=== PATIENT | male | born 1965 | race Two or more races ===

== ENCOUNTER 2017-04-29 03:14 | Inpatient (IN) | payer MEDICAID ==
[~2017-04-29] VITALS: Ht 185.4 cm; Wt 113.5 kg
[2017-04-29 04:22] LABS: Basophils # (auto) 0 uL; Basophils % (auto) 0.5 % (0.0-2.0); Eosinophils # (auto) 0.2 uL; Eosinophils % (auto) 3.7 % (0.0-7.0); Hematocrit 42.1 % (41.0-53.0); Hemoglobin 14.2 g/dL (13.5-17.5); Lymphocytes # (auto) 1.8 uL; Lymphocytes % (auto) 31.3 % (10.0-50.0); Mean Corpuscular Hemoglobin 29.8 pg (28.0-32.0); Mean Corpuscular Hgb Conc. 33.8 g/dL (32.0-36.0); Mean Corpuscular Volume 88.2 fL (80.0-100.0); Mean Platelet Volume 9.7 fL (7.4-10.4); Monocytes # (auto) 0.4 uL; Monocytes % (auto) 6.9 % (0.0-12.0); Neutrophils # (auto) 3.4 uL; Neutrophils % (auto) 57.6 % (37.0-80.0); Platelet Count (auto) 175 10^3/uL (140-450); Red Cell Distribution Width 13.4 % (11.6-16.0); White Blood Cell 5.8 10^3/uL (4.4-10.8)
[2017-04-29 04:31] LABS: INR 0.99 (0.9-1.15); Partial Thromboplastin Time 28.6 sec (22.64-33.71); Prothrombin Time 10.8 sec (9.37-12.3)
[2017-04-29 04:37] LABS: Albumin 3.8 g/dL (3.4-5.0); Blood Urea Nitrogen 15 mg/dL (7-18); Calcium 8.1 mg/dL (8.5-10.1); Chloride 107 mmol/L (98-107); Glucose 166 mg/dL (74-106); Magnesium 1.8 mg/dL (1.6-2.6); Sodium 141 mmol/L (136-145)
[2017-04-29 04:41] LABS: Anion Gap 11 (5-15); Aspartate Aminotransferase 89 U/L (15-37); BUN/Creatinine Ratio 17.4; Bilirubin, Total 0.7 mg/dL (0.2-1.0); Carbon Dioxide 23 mmol/L (21-32); GFR African American 120 mL/min; GFR Non-African American 99 mL/min; Total Protein 6.9 g/dL (6.4-8.2)
[2017-04-29 04:45] LABS: Alkaline Phosphatase 106 U/L (45-117)
[2017-04-29 04:46] LABS: B-Type Natriuretic Peptide 21.94 pg/mL (0-100)
[2017-04-29 04:47] LABS: Temperature: 22.3 C (20.0-25.0)
[2017-04-29] MEDS ORDERED: ONDANSETRON HCL 4 MG/2 ML VIAL IV ONE (06:00)
[2017-04-29] MEDS ORDERED: MORPHINE SULF INJ 2 MG/ML SYRINGE 1ML IV ONE (06:45)
[2017-04-29] MEDS ORDERED: SODIUM CHLORIDE 0.9% 1,000 ML IV ONE (07:00)
[2017-04-29] MEDS ORDERED: METF-370 PO (07:30)
[2017-04-29 08:00] LABS: Amylase 42 U/L (25-115)
[2017-04-29 08:10] LABS: Urine Bilirubin Negative (Negative); Urine Blood Negative /uL (Negative); Urine Ca Oxalate Crystal FEW (None Seen); Urine Color Yellow (Yellow); Urine Ketone Negative (Negative); Urine Mucus FEW (None Seen); Urine Nitrite Negative (Negative); Urine RBC 1 /hpf (0 - 3)
[2017-04-29 08:12] LABS: Urine Glucose 1+ mg/dL (Normal)
[2017-04-29] MEDS ORDERED: HYDROmorphone HCL 2 MG/ML VL IV ONE (09:00)
[2017-04-29] MEDS ORDERED: DEXTROSE (50%) 50ML SYRG IV PRN (11:15)
[2017-04-29] MEDS ORDERED: NITROGLYCERIN 0.4 MG SL TAB SL PRN ×2 (11:15)
[2017-04-29] MEDS ORDERED: ZOLPIDEM TARTRATE 5 MG TAB PO PRN (11:15)
[2017-04-29] MEDS ORDERED: MORPHINE SULF INJ 2 MG/ML SYRINGE 1ML IV PRN (11:15)
[2017-04-29] MEDS ORDERED: LORazepam 0.5 MG TAB PO PRN (11:15)
[2017-04-29] MEDS ORDERED: ALUM & MAG HYDROX-SIMETH LIQ(MAALOX) 30 ML PO PRN (11:15)
[2017-04-29] MEDS ORDERED: DOCUSATE SOD 100 MG CAP PO ONE (11:30)
[2017-04-29] MEDS ORDERED: ENALAPRIL MALEATE 2.5 MG TAB PO ONE (11:30)
[2017-04-29] MEDS ORDERED: CARVEDILOL 3.125 MG TAB PO ONE (11:30)
[2017-04-29] MEDS ORDERED: ASPirin 81 mg TAB PO ONE (11:30)
[2017-04-29] MEDS ORDERED: CLOPIDOGREL BISULFATE 75 MG TAB PO ONE (11:30)
[2017-04-29] MEDS: ACCU-CHEK COMFORT CURVE STRIP VI SCH ×3 (12:14→22:13)
[2017-04-29] MEDS: InsuLIN REG 1unit/0.01ml Soln (100units/ml) SC SCH ×3 (12:14→22:00)
[2017-04-29] MEDS ORDERED: PREG75CA PO (12:52)
[2017-04-29] MEDS ORDERED: IBUP800T24 PO (12:52)
[2017-04-29] MEDS ORDERED: FENO160T8 PO (12:52)
[2017-04-29] MEDS: SODIUM CHLOR 0.9% PF (SALINE LOCK) 10ML VIAL IV SCH ×2 (14:00→22:11)
[2017-04-29] MEDS: MORPHINE SULF INJ 2 MG/ML SYRINGE 1ML IV PRN (16:45)
[2017-04-29] MEDS: ONDANSETRON HCL 4 MG/2 ML VIAL IV PRN (16:47)
[2017-04-29 17:00] VITALS: BP 107/60
[2017-04-29] MEDS ORDERED: POTASSIUM CHL 10% (20 MEQ/15ML) ORAL SOLN PO ONE (19:00)
[2017-04-29] MEDS ORDERED: FUROSEMIDE 20 MG/2 ML VIAL IV ONE (19:00)
[2017-04-29 20:00] VITALS: BP 120/75
[2017-04-29] MEDS: MAGNESIUM SULFATE 1GM/100ML 100 ML IV SCH ×2 (20:50→22:10)
[2017-04-29] MEDS ORDERED: ATORVASTATIN 20 MG TAB PO SCH (22:00)
[2017-04-29] MEDS: FENOFIBRATE 48MG PO SCH (22:00)
[2017-04-29 22:08] VITALS: BP 120/75
[2017-04-29] MEDS: ENALAPRIL MALEATE 2.5 MG TAB PO SCH (22:12)
[2017-04-29] MEDS: PREGABALIN CAPSULE 75 MG CAP PO SCH (22:13)
[2017-04-29] MEDS: CARVEDILOL 3.125 MG TAB PO SCH (22:13)
[2017-04-30] VITALS (7 sets, daily range): BP systolic 104–119; BP diastolic 56–75
[2017-04-30 05:46] LABS: Basophils # (auto) 0 uL; Basophils % (auto) 0.2 % (0.0-2.0); Eosinophils # (auto) 0 uL; Eosinophils % (auto) 0.1 % (0.0-7.0); Hemoglobin 14.2 g/dL (13.5-17.5); Lymphocytes # (auto) 0.3 uL; Lymphocytes % (auto) 4.1 % (10.0-50.0); Mean Corpuscular Hgb Conc. 33.9 g/dL (32.0-36.0); Mean Corpuscular Volume 88.6 fL (80.0-100.0); Mean Platelet Volume 10.3 fL (7.4-10.4); Monocytes # (auto) 0.5 uL; Monocytes % (auto) 5.7 % (0.0-12.0); Neutrophils # (auto) 7.7 uL; Neutrophils % (auto) 89.9 % (37.0-80.0); Platelet Count (auto) 167 10^3/uL (140-450); Red Cell Distribution Width 14.1 % (11.6-16.0); White Blood Cell 8.5 10^3/uL (4.4-10.8)
[2017-04-30] MEDS: SODIUM CHLOR 0.9% PF (SALINE LOCK) 10ML VIAL IV SCH ×3 (06:16→21:52)
[2017-04-30 06:18] LABS: Albumin 3.5 g/dL (3.4-5.0); BUN/Creatinine Ratio 14.3; Bilirubin, Total 8.1 mg/dL (0.2-1.0); Calcium 8.3 mg/dL (8.5-10.1); Magnesium 2.2 mg/dL (1.6-2.6); Potassium 3.7 mmol/L (3.5-5.1); Total Protein 6.6 g/dL (6.4-8.2)
[2017-04-30] MEDS: InsuLIN REG 1unit/0.01ml Soln (100units/ml) SC SCH ×4 (06:38→21:51)
[2017-04-30] MEDS: ACCU-CHEK COMFORT CURVE STRIP VI SCH ×4 (06:38→21:51)
[2017-04-30] MEDS: ASPirin 81 mg TAB PO SCH (09:37)
[2017-04-30] MEDS: DOCUSATE SOD 100 MG CAP PO SCH (09:37)
[2017-04-30] MEDS: CARVEDILOL 3.125 MG TAB PO SCH ×2 (09:38→21:43)
[2017-04-30] MEDS: ENALAPRIL MALEATE 2.5 MG TAB PO SCH ×2 (09:38→21:44)
[2017-04-30] MEDS: MORPHINE SULF INJ 2 MG/ML SYRINGE 1ML IV PRN (09:41)
[2017-04-30] MEDS ORDERED: METOPROLOL TARTRATE 50 MG TAB PO ONE (10:00)
[2017-04-30] MEDS ORDERED: CLOPIDOGREL BISULFATE 75 MG TAB PO SCH (10:00)
[2017-04-30] MEDS ORDERED: IOHEXOL 350 MG/ML 100ML IJ ONE (10:43)
[2017-04-30] MEDS ORDERED: METOPROLOL TARTRATE 1MG/1ML-5ML VIAL IV ONE (11:32)
[2017-04-30] MEDS: ACETAMINOPHEN 325 MG TAB PO PRN (17:20)
[2017-04-30] MEDS: ONDANSETRON HCL 4 MG/2 ML VIAL IV PRN (17:20)
[2017-04-30] MEDS: PREGABALIN CAPSULE 75 MG CAP PO SCH (21:43)
[2017-04-30] MEDS: FENOFIBRATE 48MG PO SCH (21:53)
[2017-05-01] MEDS: IBUPROFEN 800 MG TAB PO PRN ×2 (01:49→19:45)
[2017-05-01 04:50] VITALS: BP 115/63
[2017-05-01 05:58] LABS: Basophils # (auto) 0 uL; Basophils % (auto) 0.6 % (0.0-2.0); Eosinophils # (auto) 0.1 uL; Eosinophils % (auto) 1.5 % (0.0-7.0); Lymphocytes # (auto) 0.5 uL; Lymphocytes % (auto) 8.8 % (10.0-50.0); Mean Corpuscular Hgb Conc. 34.2 g/dL (32.0-36.0); Mean Corpuscular Volume 87.6 fL (80.0-100.0); Mean Platelet Volume 9.7 fL (7.4-10.4); Monocytes # (auto) 0.5 uL; Monocytes % (auto) 10.6 % (0.0-12.0); Neutrophils # (auto) 4.1 uL; Neutrophils % (auto) 78.5 % (37.0-80.0); Platelet Count (auto) 161 10^3/uL (140-450); Red Cell Distribution Width 13.7 % (11.6-16.0); White Blood Cell 5.2 10^3/uL (4.4-10.8)
[2017-05-01] MEDS: SODIUM CHLOR 0.9% PF (SALINE LOCK) 10ML VIAL IV SCH ×3 (06:04→21:39)
[2017-05-01 06:10] LABS: BUN/Creatinine Ratio 13.7; Calcium 8.5 mg/dL (8.5-10.1); Potassium 4.3 mmol/L (3.5-5.1)
[2017-05-01 06:12] LABS: Albumin 3.6 g/dL (3.4-5.0); Bilirubin, Total 4.7 mg/dL (0.2-1.0); Total Protein 6.8 g/dL (6.4-8.2)
[2017-05-01 06:16] LABS: Bilirubin, Direct 3.3 mg/dL (0-0.2)
[2017-05-01 06:27] LABS: Hepatitis B Surface Antibody Negative
[2017-05-01] MEDS: InsuLIN REG 1unit/0.01ml Soln (100units/ml) SC SCH ×4 (06:53→21:41)
[2017-05-01] MEDS: ACCU-CHEK COMFORT CURVE STRIP VI SCH ×4 (06:53→21:42)
[2017-05-01 09:00] VITALS: BP 113/67
[2017-05-01] MEDS: ENALAPRIL MALEATE 2.5 MG TAB PO SCH ×2 (10:06→21:40)
[2017-05-01] MEDS: DOCUSATE SOD 100 MG CAP PO SCH (10:16)
[2017-05-01] MEDS: CARVEDILOL 3.125 MG TAB PO SCH ×2 (10:17→21:39)
[2017-05-01] MEDS: ASPirin 81 mg TAB PO SCH (10:17)
[2017-05-01 12:36] VITALS: BP 111/74
[2017-05-01] MEDS: PREGABALIN CAPSULE 75 MG CAP PO SCH (21:40)
[2017-05-01] MEDS: FENOFIBRATE 48MG PO SCH (21:40)
[2017-05-01 21:50] VITALS: BP 102/59
[2017-05-02 05:06] VITALS: BP 104/68
[2017-05-02 05:57] LABS: Basophils # (auto) 0 uL; Basophils % (auto) 0.5 % (0.0-2.0); Eosinophils # (auto) 0.2 uL; Eosinophils % (auto) 3.9 % (0.0-7.0); Hemoglobin 14.9 g/dL (13.5-17.5); Lymphocytes # (auto) 0.7 uL; Lymphocytes % (auto) 16.2 % (10.0-50.0); Mean Corpuscular Hgb Conc. 33.9 g/dL (32.0-36.0); Mean Corpuscular Volume 88.5 fL (80.0-100.0); Mean Platelet Volume 9.4 fL (7.4-10.4); Monocytes # (auto) 0.7 uL; Monocytes % (auto) 15.2 % (0.0-12.0); Neutrophils % (auto) 64.2 % (37.0-80.0); Platelet Count (auto) 157 10^3/uL (140-450); Red Cell Distribution Width 13.8 % (11.6-16.0); White Blood Cell 4.6 10^3/uL (4.4-10.8)
[2017-05-02] MEDS: SODIUM CHLOR 0.9% PF (SALINE LOCK) 10ML VIAL IV SCH ×3 (06:18→22:27)
[2017-05-02] MEDS: InsuLIN REG 1unit/0.01ml Soln (100units/ml) SC SCH ×4 (06:18→22:00)
[2017-05-02] MEDS: ACCU-CHEK COMFORT CURVE STRIP VI SCH ×4 (06:18→22:27)
[2017-05-02 06:20] LABS: Albumin 3.5 g/dL (3.4-5.0); BUN/Creatinine Ratio 14.6; Bilirubin, Total 2.7 mg/dL (0.2-1.0); Calcium 8.6 mg/dL (8.5-10.1); Potassium 4.4 mmol/L (3.5-5.1)
[2017-05-02 06:21] LABS: Bilirubin, Direct 1.6 mg/dL (0-0.2)
[2017-05-02 08:00] VITALS: BP 128/78
[2017-05-02 09:00] VITALS: BP 128/78
[2017-05-02] MEDS ORDERED: GASTROGRAFIN 30 ML SOL ONE (09:37)
[2017-05-02] MEDS: ASPirin 81 mg TAB PO SCH (09:57)
[2017-05-02] MEDS: DOCUSATE SOD 100 MG CAP PO SCH (09:57)
[2017-05-02] MEDS: CARVEDILOL 3.125 MG TAB PO SCH ×2 (09:58→22:27)
[2017-05-02] MEDS: ENALAPRIL MALEATE 2.5 MG TAB PO SCH ×2 (09:58→22:00)
[2017-05-02] MEDS ORDERED: IOHEXOL 300 MG/ML 100ML BOTTLE IJ ONE (11:18)
[2017-05-02] MEDS ORDERED: diphenhdrAMINE HCL 50 MG/1 ML VL IV ONE (12:30)
[2017-05-02 17:00] VITALS: BP 123/67
[2017-05-02] MEDS: IBUPROFEN 800 MG TAB PO PRN (17:29)
[2017-05-02] MEDS: FENOFIBRATE 48MG PO SCH (22:00)
[2017-05-02 22:27] VITALS: BP 108/69
[2017-05-02] MEDS: PREGABALIN CAPSULE 75 MG CAP PO SCH (22:58)
[2017-05-03] VITALS (7 sets, daily range): BP systolic 93–128; BP diastolic 58–79
[2017-05-03 05:43] LABS: Basophils # (auto) 0 uL; Basophils % (auto) 0.6 % (0.0-2.0); Eosinophils # (auto) 0.3 uL; Eosinophils % (auto) 5.6 % (0.0-7.0); Hemoglobin 14.7 g/dL (13.5-17.5); Lymphocytes # (auto) 1.6 uL; Mean Corpuscular Hemoglobin 29.9 pg (28.0-32.0); Mean Corpuscular Hgb Conc. 34.3 g/dL (32.0-36.0); Mean Corpuscular Volume 87.1 fL (80.0-100.0); Mean Platelet Volume 9.5 fL (7.4-10.4); Monocytes # (auto) 0.8 uL; Monocytes % (auto) 15.2 % (0.0-12.0); Neutrophils # (auto) 2.8 uL; Neutrophils % (auto) 50.6 % (37.0-80.0); Platelet Count (auto) 174 10^3/uL (140-450); Red Cell Distribution Width 13.6 % (11.6-16.0); White Blood Cell 5.6 10^3/uL (4.4-10.8)
[2017-05-03] MEDS: SODIUM CHLOR 0.9% PF (SALINE LOCK) 10ML VIAL IV SCH ×3 (06:09→22:08)
[2017-05-03 06:32] LABS: Albumin 3.4 g/dL (3.4-5.0); BUN/Creatinine Ratio 15.9; Bilirubin, Total 1.9 mg/dL (0.2-1.0); Calcium 8.3 mg/dL (8.5-10.1); Potassium 3.9 mmol/L (3.5-5.1); Total Protein 6.8 g/dL (6.4-8.2)
[2017-05-03 06:33] LABS: Bilirubin, Direct 1.1 mg/dL (0-0.2)
[2017-05-03] MEDS: InsuLIN REG 1unit/0.01ml Soln (100units/ml) SC SCH ×4 (06:43→22:08)
[2017-05-03] MEDS: ACCU-CHEK COMFORT CURVE STRIP VI SCH ×4 (06:43→22:07)
[2017-05-03] MEDS: ASPirin 81 mg TAB PO SCH (09:47)
[2017-05-03] MEDS: DOCUSATE SOD 100 MG CAP PO SCH (09:47)
[2017-05-03] MEDS: ENALAPRIL MALEATE 2.5 MG TAB PO SCH ×2 (09:48→22:00)
[2017-05-03] MEDS: CARVEDILOL 3.125 MG TAB PO SCH ×2 (09:49→22:00)
[2017-05-03] MEDS: IBUPROFEN 800 MG TAB PO PRN ×3 (10:01→22:30)
[2017-05-03] MEDS: FENOFIBRATE 48MG PO SCH (22:00)
[2017-05-03] MEDS: PREGABALIN CAPSULE 75 MG CAP PO SCH (22:05)
[2017-05-04 04:49] VITALS: BP 101/58
[2017-05-04] MEDS: SODIUM CHLOR 0.9% PF (SALINE LOCK) 10ML VIAL IV SCH ×3 (05:46→21:47)
[2017-05-04] MEDS: InsuLIN REG 1unit/0.01ml Soln (100units/ml) SC SCH ×4 (06:18→22:06)
[2017-05-04] MEDS: ACCU-CHEK COMFORT CURVE STRIP VI SCH ×4 (06:18→21:48)
[2017-05-04 06:34] LABS: Basophils # (auto) 0 uL; Basophils % (auto) 0.4 % (0.0-2.0); Eosinophils # (auto) 0.3 uL; Eosinophils % (auto) 5.2 % (0.0-7.0); Hematocrit 42.5 % (41.0-53.0); Hemoglobin 14.6 g/dL (13.5-17.5); Lymphocytes # (auto) 1.8 uL; Lymphocytes % (auto) 32.1 % (10.0-50.0); Mean Corpuscular Hemoglobin 29.9 pg (28.0-32.0); Mean Corpuscular Hgb Conc. 34.4 g/dL (32.0-36.0); Mean Platelet Volume 9.5 fL (7.4-10.4); Monocytes # (auto) 0.6 uL; Monocytes % (auto) 10.3 % (0.0-12.0); Neutrophils # (auto) 2.9 uL; Platelet Count (auto) 187 10^3/uL (140-450); Red Cell Distribution Width 13.6 % (11.6-16.0); White Blood Cell 5.6 10^3/uL (4.4-10.8)
[2017-05-04 07:10] LABS: Bilirubin, Total 1.6 mg/dL (0.2-1.0); Calcium 8.9 mg/dL (8.5-10.1); Potassium 4.3 mmol/L (3.5-5.1)
[2017-05-04 08:00] VITALS: BP 102/73
[2017-05-04 08:08] VITALS: BP 102/73
[2017-05-04] MEDS: ASPirin 81 mg TAB PO SCH (09:21)
[2017-05-04] MEDS: DOCUSATE SOD 100 MG CAP PO SCH (09:21)
[2017-05-04] MEDS: CARVEDILOL 3.125 MG TAB PO SCH ×2 (09:23→22:00)
[2017-05-04] MEDS: ENALAPRIL MALEATE 2.5 MG TAB PO SCH ×2 (09:24→21:48)
[2017-05-04 12:50] VITALS: BP 123/74
[2017-05-04] MEDS: IBUPROFEN 800 MG TAB PO PRN ×2 (13:16→21:56)
[2017-05-04 16:35] VITALS: BP 105/73
[2017-05-04] MEDS: PREGABALIN CAPSULE 75 MG CAP PO SCH (21:48)
[2017-05-04 22:00] VITALS: BP 119/70
[2017-05-04] MEDS: FENOFIBRATE 48MG PO SCH (22:00)
[2017-05-05 05:00] VITALS: BP 103/63
[2017-05-05 05:36] LABS: Basophils # (auto) 0 uL; Basophils % (auto) 0.6 % (0.0-2.0); Eosinophils # (auto) 0.2 uL; Eosinophils % (auto) 3.8 % (0.0-7.0); Hematocrit 41.9 % (41.0-53.0); Hemoglobin 14.5 g/dL (13.5-17.5); Lymphocytes # (auto) 2.4 uL; Lymphocytes % (auto) 37.9 % (10.0-50.0); Mean Corpuscular Hemoglobin 30.3 pg (28.0-32.0); Mean Corpuscular Hgb Conc. 34.7 g/dL (32.0-36.0); Mean Corpuscular Volume 87.6 fL (80.0-100.0); Mean Platelet Volume 9.5 fL (7.4-10.4); Monocytes # (auto) 0.5 uL; Monocytes % (auto) 7.9 % (0.0-12.0); Neutrophils # (auto) 3.2 uL; Neutrophils % (auto) 49.8 % (37.0-80.0); Platelet Count (auto) 196 10^3/uL (140-450); Red Cell Distribution Width 13.6 % (11.6-16.0); White Blood Cell 6.4 10^3/uL (4.4-10.8)
[2017-05-05 05:50] LABS: Calcium 8.3 mg/dL (8.5-10.1); Potassium 3.9 mmol/L (3.5-5.1)
[2017-05-05] MEDS: InsuLIN REG 1unit/0.01ml Soln (100units/ml) SC SCH ×5 (06:10→22:15)
[2017-05-05] MEDS: SODIUM CHLOR 0.9% PF (SALINE LOCK) 10ML VIAL IV SCH ×3 (06:10→22:05)
[2017-05-05] MEDS: ACCU-CHEK COMFORT CURVE STRIP VI SCH ×4 (06:10→22:15)
[2017-05-05] MEDS ORDERED: ceFAZolin 1GM/50ML D5W 50 ML IV ONE (07:32)
[2017-05-05] MEDS ORDERED: ROCURONIUM 10MG/ML 10ML VIAL IV ONE (07:39)
[2017-05-05] MEDS ORDERED: SUCCINYLCHOLINE CHLORIDE 20 MG/ML 10ML VIAL IV ONE (07:39)
[2017-05-05] MEDS ORDERED: PROPOFOL 10 MG/ML 20 ML IV ONE (07:59)
[2017-05-05] MEDS ORDERED: NEOSTIGMINE 1 MG/ML INJ (10mg/10ML VIAL) IV ONE (07:59)
[2017-05-05] MEDS ORDERED: MIDAZOLAM HCL 1MG/1ML-2 ML VIAL ONE (07:59)
[2017-05-05] MEDS ORDERED: fentaNYL CITRATE 100 MCG/2 ML VL ONE (07:59)
[2017-05-05] MEDS ORDERED: GLYCOPYRROLATE 0.2 MG/ML 1ML VIAL IV ONE (07:59)
[2017-05-05 08:00] VITALS: BP 103/63
[2017-05-05] MEDS ORDERED: hydrALAZINE HCL 20 MG/ML VL IV PRN (09:15)
[2017-05-05] MEDS ORDERED: MORPHINE SULF INJ 2 MG/ML SYRINGE 1ML IV PRN ×2 (09:15→14:00)
[2017-05-05] MEDS ORDERED: ePHEDrine SULFATE 50 MG/ML AMP IV PRN (09:15)
[2017-05-05] MEDS ORDERED: ONDANSETRON HCL 4 MG/2 ML VIAL IV ONE (09:15)
[2017-05-05] MEDS: ENALAPRIL MALEATE 2.5 MG TAB PO SCH ×2 (10:00→22:00)
[2017-05-05] MEDS: CARVEDILOL 3.125 MG TAB PO SCH ×2 (10:00→22:00)
[2017-05-05] MEDS: ONDANSETRON HCL 4 MG/2 ML VIAL IV PRN (10:31)
[2017-05-05] MEDS: IBUPROFEN 800 MG TAB PO PRN (10:32)
[2017-05-05] MEDS: ASPirin 81 mg TAB PO SCH (10:32)
[2017-05-05] MEDS: DOCUSATE SOD 100 MG CAP PO SCH (10:38)
[2017-05-05 13:00] VITALS: BP 95/52
[2017-05-05] MEDS ORDERED: SODIUM CHLORIDE 0.9% 1,000 ML IV ONE (15:35)
[2017-05-05 17:00] VITALS: BP 90/46
[2017-05-05 22:00] VITALS: BP 98/62
[2017-05-05] MEDS: FENOFIBRATE 48MG PO SCH (22:00)
[2017-05-05] MEDS: PREGABALIN CAPSULE 75 MG CAP PO SCH (22:05)
[2017-05-05] MEDS: HYDROmorphone HCL 2 MG/ML VL IV PRN (22:06)
[2017-05-05 22:41] VITALS: BP 108/62
[2017-05-06] MEDS: HYDROmorphone HCL 2 MG/ML VL IV PRN ×4 (04:34→20:28)
[2017-05-06 05:00] VITALS: BP 120/67
[2017-05-06 05:33] LABS: Basophils # (auto) 0 uL; Basophils % (auto) 0.3 % (0.0-2.0); Eosinophils # (auto) 0 uL; Eosinophils % (auto) 0.2 % (0.0-7.0); Hematocrit 32.2 % (41.0-53.0); Hemoglobin 11.1 g/dL (13.5-17.5); Lymphocytes # (auto) 1.3 uL; Lymphocytes % (auto) 11.9 % (10.0-50.0); Mean Corpuscular Hemoglobin 30.3 pg (28.0-32.0); Mean Corpuscular Hgb Conc. 34.5 g/dL (32.0-36.0); Monocytes # (auto) 0.8 uL; Monocytes % (auto) 7.6 % (0.0-12.0); Neutrophils # (auto) 8.7 uL; Platelet Count (auto) 250 10^3/uL (140-450); Red Cell Distribution Width 13.6 % (11.6-16.0); White Blood Cell 10.9 10^3/uL (4.4-10.8)
[2017-05-06] MEDS: SODIUM CHLOR 0.9% PF (SALINE LOCK) 10ML VIAL IV SCH ×3 (05:46→21:50)
[2017-05-06 05:55] LABS: BUN/Creatinine Ratio 20.7; Calcium 7.9 mg/dL (8.5-10.1); Potassium 4.6 mmol/L (3.5-5.1)
[2017-05-06] MEDS: ACCU-CHEK COMFORT CURVE STRIP VI SCH ×4 (06:16→21:49)
[2017-05-06] MEDS: InsuLIN REG 1unit/0.01ml Soln (100units/ml) SC SCH ×4 (06:17→22:19)
[2017-05-06 09:00] VITALS: BP 128/73
[2017-05-06] MEDS: ENALAPRIL MALEATE 2.5 MG TAB PO SCH ×2 (10:00→21:50)
[2017-05-06] MEDS: CARVEDILOL 3.125 MG TAB PO SCH ×2 (10:00→21:23)
[2017-05-06] MEDS: ASPirin 81 mg TAB PO SCH (10:00)
[2017-05-06] MEDS: DOCUSATE SOD 100 MG CAP PO SCH (10:02)
[2017-05-06 13:00] VITALS: BP 117/64
[2017-05-06 15:24] LABS: Basophils # (auto) 0 uL; Basophils % (auto) 0.2 % (0.0-2.0); Eosinophils # (auto) 0.1 uL; Eosinophils % (auto) 0.8 % (0.0-7.0); Hematocrit 30.1 % (41.0-53.0); Hemoglobin 10.2 g/dL (13.5-17.5); Lymphocytes # (auto) 2.1 uL; Lymphocytes % (auto) 21.2 % (10.0-50.0); Mean Corpuscular Hemoglobin 29.9 pg (28.0-32.0); Mean Corpuscular Volume 87.9 fL (80.0-100.0); Monocytes # (auto) 0.9 uL; Monocytes % (auto) 8.8 % (0.0-12.0); Neutrophils # (auto) 6.8 uL; Platelet Count (auto) 240 10^3/uL (140-450); Red Cell Distribution Width 13.4 % (11.6-16.0); White Blood Cell 9.9 10^3/uL (4.4-10.8)
[2017-05-06 17:00] VITALS: BP 107/71
[2017-05-06] MEDS: PREGABALIN CAPSULE 75 MG CAP PO SCH (21:50)
[2017-05-06] MEDS: FENOFIBRATE 48MG PO SCH (21:50)
[2017-05-06 21:59] VITALS: BP 106/69
[2017-05-07] MEDS: HYDROmorphone HCL 2 MG/ML VL IV PRN ×5 (00:11→18:48)
[2017-05-07 05:15] VITALS: BP 107/61
[2017-05-07] MEDS: SODIUM CHLOR 0.9% PF (SALINE LOCK) 10ML VIAL IV SCH ×3 (06:00→21:58)
[2017-05-07] MEDS: ACCU-CHEK COMFORT CURVE STRIP VI SCH ×4 (06:32→21:55)
[2017-05-07] MEDS: InsuLIN REG 1unit/0.01ml Soln (100units/ml) SC SCH ×4 (06:49→21:55)
[2017-05-07 09:00] VITALS: BP 115/84
[2017-05-07 09:12] LABS: Basophils # (auto) 0 uL; Basophils % (auto) 0.4 % (0.0-2.0); Eosinophils # (auto) 0.1 uL; Eosinophils % (auto) 1.2 % (0.0-7.0); Hematocrit 26.9 % (41.0-53.0); Hemoglobin 9.2 g/dL (13.5-17.5); Lymphocytes # (auto) 1.6 uL; Lymphocytes % (auto) 21.2 % (10.0-50.0); Mean Corpuscular Hgb Conc. 34.2 g/dL (32.0-36.0); Mean Corpuscular Volume 87.8 fL (80.0-100.0); Mean Platelet Volume 8.4 fL (7.4-10.4); Monocytes # (auto) 0.8 uL; Neutrophils # (auto) 5.2 uL; Neutrophils % (auto) 67.2 % (37.0-80.0); Platelet Count (auto) 232 10^3/uL (140-450); Red Cell Distribution Width 13.5 % (11.6-16.0); White Blood Cell 7.8 10^3/uL (4.4-10.8)
[2017-05-07] MEDS: DOCUSATE SOD 100 MG CAP PO SCH (10:00)
[2017-05-07] MEDS: ASPirin 81 mg TAB PO SCH (10:00)
[2017-05-07] MEDS: ENALAPRIL MALEATE 2.5 MG TAB PO SCH ×2 (10:01→21:56)
[2017-05-07] MEDS: CARVEDILOL 3.125 MG TAB PO SCH ×2 (10:01→21:57)
[2017-05-07 13:00] VITALS: BP 114/70
[2017-05-07 16:45] VITALS: BP 120/76
[2017-05-07] MEDS: PREGABALIN CAPSULE 75 MG CAP PO SCH (21:56)
[2017-05-07 22:00] VITALS: BP 127/64
[2017-05-07] MEDS: FENOFIBRATE 48MG PO SCH (22:00)
[2017-05-08] VITALS (11 sets, daily range): BP systolic 104–126; BP diastolic 55–73
[2017-05-08] MEDS: HYDROmorphone HCL 2 MG/ML VL IV PRN ×2 (00:59→20:46)
[2017-05-08] MEDS: InsuLIN REG 1unit/0.01ml Soln (100units/ml) SC SCH ×4 (06:10→21:21)
[2017-05-08] MEDS: ACCU-CHEK COMFORT CURVE STRIP VI SCH ×4 (06:10→21:20)
[2017-05-08] MEDS: SODIUM CHLOR 0.9% PF (SALINE LOCK) 10ML VIAL IV SCH ×3 (06:10→21:19)
[2017-05-08 06:54] LABS: Basophils # (auto) 0 uL; Basophils % (auto) 0.4 % (0.0-2.0); CONDITION Y; Eosinophils # (auto) 0.1 uL; Eosinophils % (auto) 1.5 % (0.0-7.0); Hematocrit 25.6 % (41.0-53.0); Hemoglobin 8.8 g/dL (13.5-17.5); Lymphocytes # (auto) 1.8 uL; Lymphocytes % (auto) 25.2 % (10.0-50.0); Mean Corpuscular Hemoglobin 30.3 pg (28.0-32.0); Mean Corpuscular Hgb Conc. 34.5 g/dL (32.0-36.0); Mean Platelet Volume 8.7 fL (7.4-10.4); Monocytes # (auto) 0.7 uL; Monocytes % (auto) 9.3 % (0.0-12.0); Neutrophils # (auto) 4.5 uL; Neutrophils % (auto) 63.6 % (37.0-80.0); Platelet Count (auto) 246 10^3/uL (140-450); Red Cell Distribution Width 12.7 % (11.6-16.0); White Blood Cell 7.1 10^3/uL (4.4-10.8)
[2017-05-08 07:10] LABS: INR 1.05 (0.9-1.15); Partial Thromboplastin Time 27.7 sec (22.64-33.71); Prothrombin Time 11.4 sec (9.37-12.3)
[2017-05-08 07:43] LABS: Potassium 4.1 mmol/L (3.5-5.1)
[2017-05-08 07:49] LABS: Albumin 2.9 g/dL (3.4-5.0); BUN/Creatinine Ratio 14.8; Calcium 8.2 mg/dL (8.5-10.1)
[2017-05-08 08:14] LABS: Bilirubin, Total 1.3 mg/dL (0.2-1.0); Total Protein 6.3 g/dL (6.4-8.2)
[2017-05-08] MEDS: CARVEDILOL 3.125 MG TAB PO SCH ×2 (11:26→21:19)
[2017-05-08] MEDS: ASPirin 81 mg TAB PO SCH (11:26)
[2017-05-08] MEDS: DOCUSATE SOD 100 MG CAP PO SCH (11:26)
[2017-05-08] MEDS: ENALAPRIL MALEATE 2.5 MG TAB PO SCH ×2 (11:27→21:20)
[2017-05-08] MEDS: ACETAMINOPHEN 325 MG TAB PO PRN (18:06)
[2017-05-08] MEDS: FENOFIBRATE 48MG PO SCH (21:19)
[2017-05-08] MEDS: PREGABALIN CAPSULE 75 MG CAP PO SCH (21:20)
[2017-05-09] MEDS: HYDROmorphone HCL 2 MG/ML VL IV PRN ×5 (00:17→19:58)
[2017-05-09 05:00] VITALS: BP 114/61
[2017-05-09] MEDS: SODIUM CHLOR 0.9% PF (SALINE LOCK) 10ML VIAL IV SCH ×3 (06:14→21:57)
[2017-05-09] MEDS: ACCU-CHEK COMFORT CURVE STRIP VI SCH ×4 (06:14→21:57)
[2017-05-09] MEDS: InsuLIN REG 1unit/0.01ml Soln (100units/ml) SC SCH ×4 (06:15→21:57)
[2017-05-09 07:22] LABS: Basophils # (auto) 0 uL; Basophils % (auto) 0.4 % (0.0-2.0); CONDITION AutoValidated; Eosinophils # (auto) 0.1 uL; Eosinophils % (auto) 1.8 % (0.0-7.0); Hematocrit 29.9 % (41.0-53.0); Hemoglobin 10.2 g/dL (13.5-17.5); Lymphocytes # (auto) 1.3 uL; Lymphocytes % (auto) 16.4 % (10.0-50.0); Mean Corpuscular Hemoglobin 30.1 pg (28.0-32.0); Mean Corpuscular Hgb Conc. 34.2 g/dL (32.0-36.0); Mean Corpuscular Volume 88.1 fL (80.0-100.0); Mean Platelet Volume 8.5 fL (7.4-10.4); Monocytes # (auto) 0.7 uL; Monocytes % (auto) 8.6 % (0.0-12.0); Neutrophils # (auto) 5.9 uL; Neutrophils % (auto) 72.8 % (37.0-80.0); Platelet Count (auto) 295 10^3/uL (140-450); Red Cell Distribution Width 13.8 % (11.6-16.0); White Blood Cell 8.1 10^3/uL (4.4-10.8)
[2017-05-09 09:30] VITALS: BP 126/71
[2017-05-09] MEDS: CARVEDILOL 3.125 MG TAB PO SCH ×2 (10:15→21:56)
[2017-05-09] MEDS: ASPirin 81 mg TAB PO SCH (10:15)
[2017-05-09] MEDS: DOCUSATE SOD 100 MG CAP PO SCH (10:15)
[2017-05-09] MEDS: ENALAPRIL MALEATE 2.5 MG TAB PO SCH ×2 (10:16→21:57)
[2017-05-09 13:00] VITALS: BP 133/76
[2017-05-09 18:11] VITALS: BP 120/78
[2017-05-09 20:00] VITALS: BP 114/56
[2017-05-09] MEDS: PREGABALIN CAPSULE 75 MG CAP PO SCH (21:56)
[2017-05-09] MEDS: FENOFIBRATE 48MG PO SCH (21:58)
[2017-05-09 22:00] VITALS: BP 114/56
[2017-05-10] MEDS: HYDROmorphone HCL 2 MG/ML VL IV PRN ×6 (00:04→22:09)
[2017-05-10 05:00] VITALS: BP 116/71
[2017-05-10] MEDS: SODIUM CHLOR 0.9% PF (SALINE LOCK) 10ML VIAL IV SCH ×3 (06:00→22:09)
[2017-05-10 06:31] LABS: Basophils # (auto) 0 uL; Basophils % (auto) 0.3 % (0.0-2.0); CONDITION AutoValidated; Eosinophils # (auto) 0.2 uL; Eosinophils % (auto) 2.1 % (0.0-7.0); Hematocrit 29.8 % (41.0-53.0); Hemoglobin 10.4 g/dL (13.5-17.5); Lymphocytes # (auto) 1.3 uL; Mean Corpuscular Hemoglobin 30.1 pg (28.0-32.0); Mean Corpuscular Hgb Conc. 34.9 g/dL (32.0-36.0); Mean Corpuscular Volume 86.3 fL (80.0-100.0); Monocytes # (auto) 0.8 uL; Monocytes % (auto) 8.8 % (0.0-12.0); Neutrophils # (auto) 6.6 uL; Neutrophils % (auto) 73.8 % (37.0-80.0); Platelet Count (auto) 341 10^3/uL (140-450); White Blood Cell 8.9 10^3/uL (4.4-10.8)
[2017-05-10] MEDS: ACCU-CHEK COMFORT CURVE STRIP VI SCH ×4 (06:40→22:10)
[2017-05-10] MEDS: InsuLIN REG 1unit/0.01ml Soln (100units/ml) SC SCH ×4 (06:40→22:10)
[2017-05-10 09:00] VITALS: BP 114/69
[2017-05-10] MEDS: ASPirin 81 mg TAB PO SCH (09:49)
[2017-05-10] MEDS: DOCUSATE SOD 100 MG CAP PO SCH (09:49)
[2017-05-10] MEDS: ENALAPRIL MALEATE 2.5 MG TAB PO SCH ×2 (09:49→22:09)
[2017-05-10] MEDS: CARVEDILOL 3.125 MG TAB PO SCH ×2 (09:54→22:08)
[2017-05-10 13:00] VITALS: BP 106/62
[2017-05-10 16:47] VITALS: BP 115/67
[2017-05-10] MEDS: ACETAMINOPHEN 325 MG TAB PO PRN (18:29)
[2017-05-10 22:00] VITALS: BP 117/67
[2017-05-10] MEDS: FENOFIBRATE 48MG PO SCH (22:07)
[2017-05-10] MEDS: PREGABALIN CAPSULE 75 MG CAP PO SCH (22:09)
[2017-05-11] MEDS: HYDROmorphone HCL 2 MG/ML VL IV PRN ×6 (02:36→23:53)
[2017-05-11] MEDS: SODIUM CHLOR 0.9% PF (SALINE LOCK) 10ML VIAL IV SCH ×3 (05:27→22:00)
[2017-05-11 05:49] VITALS: BP 110/60
[2017-05-11 06:02] LABS: Basophils # (auto) 0 uL; Basophils % (auto) 0.3 % (0.0-2.0); CONDITION AutoValidated; Eosinophils # (auto) 0.2 uL; Eosinophils % (auto) 2.2 % (0.0-7.0); Hemoglobin 10.9 g/dL (13.5-17.5); Lymphocytes # (auto) 1.3 uL; Lymphocytes % (auto) 14.3 % (10.0-50.0); Mean Corpuscular Volume 88.3 fL (80.0-100.0); Mean Platelet Volume 8.3 fL (7.4-10.4); Monocytes % (auto) 10.8 % (0.0-12.0); Neutrophils # (auto) 6.4 uL; Neutrophils % (auto) 72.4 % (37.0-80.0); Platelet Count (auto) 342 10^3/uL (140-450); Red Cell Distribution Width 13.7 % (11.6-16.0); White Blood Cell 8.9 10^3/uL (4.4-10.8)
[2017-05-11 06:24] LABS: Potassium 4.4 mmol/L (3.5-5.1)
[2017-05-11] MEDS: InsuLIN REG 1unit/0.01ml Soln (100units/ml) SC SCH ×4 (06:26→22:00)
[2017-05-11] MEDS: ACCU-CHEK COMFORT CURVE STRIP VI SCH ×4 (06:26→22:00)
[2017-05-11 06:37] LABS: BUN/Creatinine Ratio 13.8; Calcium 8.2 mg/dL (8.5-10.1)
[2017-05-11 06:48] LABS: Bilirubin, Total 1.8 mg/dL (0.2-1.0); Total Protein 6.8 g/dL (6.4-8.2)
[2017-05-11 08:00] VITALS: BP 112/59
[2017-05-11 09:00] VITALS: BP 112/59
[2017-05-11] MEDS: CARVEDILOL 3.125 MG TAB PO SCH ×2 (10:00→22:47)
[2017-05-11] MEDS: ASPirin 81 mg TAB PO SCH (10:38)
[2017-05-11] MEDS: DOCUSATE SOD 100 MG CAP PO SCH (10:38)
[2017-05-11] MEDS: ENALAPRIL MALEATE 2.5 MG TAB PO SCH ×2 (10:39→22:00)
[2017-05-11 13:00] VITALS: BP 127/72
[2017-05-11 16:58] VITALS: BP 111/59
[2017-05-11 22:00] VITALS: BP 114/50
[2017-05-11] MEDS: FENOFIBRATE 48MG PO SCH (22:46)
[2017-05-11] MEDS: PREGABALIN CAPSULE 75 MG CAP PO SCH (22:47)
[2017-05-12 05:00] VITALS: BP 112/58
[2017-05-12] MEDS: HYDROmorphone HCL 2 MG/ML VL IV PRN ×6 (05:41→23:01)
[2017-05-12] MEDS: InsuLIN REG 1unit/0.01ml Soln (100units/ml) SC SCH ×4 (05:43→22:11)
[2017-05-12] MEDS: ACCU-CHEK COMFORT CURVE STRIP VI SCH ×4 (05:44→22:11)
[2017-05-12 08:00] VITALS: BP 151/85
[2017-05-12 08:56] VITALS: BP 109/63
[2017-05-12] MEDS: CARVEDILOL 3.125 MG TAB PO SCH ×2 (10:00→22:10)
[2017-05-12] MEDS: ENALAPRIL MALEATE 2.5 MG TAB PO SCH ×2 (10:00→22:11)
[2017-05-12] MEDS: ASPirin 81 mg TAB PO SCH (10:00)
[2017-05-12] MEDS: DOCUSATE SOD 100 MG CAP PO SCH (10:00)
[2017-05-12] MEDS: SODIUM CHLOR 0.9% PF (SALINE LOCK) 10ML VIAL IV SCH ×3 (10:00→22:14)
[2017-05-12 12:34] VITALS: BP 120/64
[2017-05-12 17:00] VITALS: BP 132/82
[2017-05-12 20:00] VITALS: BP 119/64
[2017-05-12] MEDS: PREGABALIN CAPSULE 75 MG CAP PO SCH (22:11)
[2017-05-12] MEDS: FENOFIBRATE 48MG PO SCH (22:12)
[2017-05-13] MEDS: HYDROmorphone HCL 2 MG/ML VL IV PRN ×7 (02:33→22:09)
[2017-05-13 05:16] VITALS: BP 106/65
[2017-05-13 06:46] LABS: BUN/Creatinine Ratio 15.4; Calcium 8.5 mg/dL (8.5-10.1); Potassium 4.8 mmol/L (3.5-5.1); Total Protein 6.6 g/dL (6.4-8.2)
[2017-05-13] MEDS: SODIUM CHLOR 0.9% PF (SALINE LOCK) 10ML VIAL IV SCH ×3 (07:38→22:06)
[2017-05-13] MEDS: InsuLIN REG 1unit/0.01ml Soln (100units/ml) SC SCH ×4 (07:38→22:30)
[2017-05-13] MEDS: ACCU-CHEK COMFORT CURVE STRIP VI SCH ×4 (07:38→22:00)
[2017-05-13 07:55] LABS: Basophils # (auto) 0 uL; Basophils % (auto) 0.5 % (0.0-2.0); CONDITION Y; Eosinophils # (auto) 0.2 uL; Eosinophils % (auto) 2.4 % (0.0-7.0); Hematocrit 31.3 % (41.0-53.0); Hemoglobin 10.7 g/dL (13.5-17.5); Lymphocytes % (auto) 13.8 % (10.0-50.0); Mean Corpuscular Hemoglobin 29.8 pg (28.0-32.0); Mean Corpuscular Hgb Conc. 34.2 g/dL (32.0-36.0); Mean Corpuscular Volume 87.2 fL (80.0-100.0); Monocytes % (auto) 14.1 % (0.0-12.0); Neutrophils % (auto) 69.2 % (37.0-80.0); Platelet Count (auto) 338 10^3/uL (140-450); Red Cell Distribution Width 13.9 % (11.6-16.0); White Blood Cell 7.3 10^3/uL (4.4-10.8)
[2017-05-13 08:24] VITALS: BP 108/71
[2017-05-13 08:26] LABS: BUN/Creatinine Ratio 15.4; Bilirubin, Total 2.1 mg/dL (0.2-1.0); Calcium 8.4 mg/dL (8.5-10.1); Potassium 4.3 mmol/L (3.5-5.1); Total Protein 6.7 g/dL (6.4-8.2)
[2017-05-13] MEDS: ASPirin 81 mg TAB PO SCH (10:00)
[2017-05-13] MEDS: ENALAPRIL MALEATE 2.5 MG TAB PO SCH ×2 (10:00→22:07)
[2017-05-13] MEDS: CARVEDILOL 3.125 MG TAB PO SCH ×2 (10:00→22:07)
[2017-05-13] MEDS: DOCUSATE SOD 100 MG CAP PO SCH (10:41)
[2017-05-13 12:44] VITALS: BP 121/67
[2017-05-13] MEDS ORDERED: diphenhdrAMINE HCL 25 MG CAP PO PRN (15:45)
[2017-05-13] MEDS: D5W/SOD CHL 0.45%/KCL 20MEQ 1,000 ML IV SCH ×2 (15:45→23:15)
[2017-05-13] MEDS: metroNIDAZOLE 500MG/100ML 100 ML IV SCH ×2 (15:46→22:00)
[2017-05-13 16:45] VITALS: BP 110/63
[2017-05-13] MEDS: ceFAZolin 1GM/50ML D5W 50 ML IV SCH (19:00)
[2017-05-13 20:00] VITALS: BP 117/66
[2017-05-13 22:00] VITALS: BP 117/66
[2017-05-13] MEDS: PREGABALIN CAPSULE 75 MG CAP PO SCH (22:07)
[2017-05-13] MEDS: FENOFIBRATE 48MG PO SCH (22:08)
[2017-05-14] MEDS: ceFAZolin 1GM/50ML D5W 50 ML IV SCH ×5 (00:06→23:55)
[2017-05-14] MEDS: HYDROmorphone HCL 2 MG/ML VL IV PRN ×6 (03:02→22:02)
[2017-05-14 04:44] VITALS: BP 115/62
[2017-05-14] MEDS: metroNIDAZOLE 500MG/100ML 100 ML IV SCH ×2 (05:52→14:00)
[2017-05-14] MEDS: SODIUM CHLOR 0.9% PF (SALINE LOCK) 10ML VIAL IV SCH ×3 (06:12→21:59)
[2017-05-14] MEDS: ACCU-CHEK COMFORT CURVE STRIP VI SCH ×4 (06:31→22:00)
[2017-05-14] MEDS: InsuLIN REG 1unit/0.01ml Soln (100units/ml) SC SCH ×4 (06:31→22:18)
[2017-05-14 06:45] LABS: Basophils # (auto) 0 uL; Basophils % (auto) 0.5 % (0.0-2.0); CONDITION Y; Eosinophils # (auto) 0.2 uL; Hematocrit 29.5 % (41.0-53.0); Lymphocytes # (auto) 0.9 uL; Lymphocytes % (auto) 11.6 % (10.0-50.0); Mean Corpuscular Hemoglobin 29.5 pg (28.0-32.0); Mean Corpuscular Hgb Conc. 33.9 g/dL (32.0-36.0); Monocytes # (auto) 0.9 uL; Monocytes % (auto) 12.8 % (0.0-12.0); Neutrophils # (auto) 5.4 uL; Neutrophils % (auto) 73.1 % (37.0-80.0); Platelet Count (auto) 322 10^3/uL (140-450); Red Cell Distribution Width 13.8 % (11.6-16.0); White Blood Cell 7.4 10^3/uL (4.4-10.8)
[2017-05-14 09:00] VITALS: BP 112/63
[2017-05-14] MEDS: D5W/SOD CHL 0.45%/KCL 20MEQ 1,000 ML IV SCH ×2 (09:15→19:15)
[2017-05-14] MEDS: ENALAPRIL MALEATE 2.5 MG TAB PO SCH ×2 (10:00→21:59)
[2017-05-14] MEDS: CARVEDILOL 3.125 MG TAB PO SCH ×2 (10:00→21:58)
[2017-05-14] MEDS: ASPirin 81 mg TAB PO SCH (10:14)
[2017-05-14] MEDS: DOCUSATE SOD 100 MG CAP PO SCH (10:14)
[2017-05-14 13:00] VITALS: BP 117/60
[2017-05-14 16:51] VITALS: BP 100/56
[2017-05-14] MEDS: LEVOFLOXACIN 500 MG TAB PO SCH (17:37)
[2017-05-14 20:00] VITALS: BP 125/79
[2017-05-14] MEDS: PREGABALIN CAPSULE 75 MG CAP PO SCH (21:57)
[2017-05-14] MEDS: FENOFIBRATE 48MG PO SCH (21:59)
[2017-05-14 22:00] VITALS: BP 125/79
[2017-05-15] MEDS: HYDROmorphone HCL 2 MG/ML VL IV PRN ×6 (02:05→20:52)
[2017-05-15 05:00] VITALS: BP 122/65
[2017-05-15] MEDS: D5W/SOD CHL 0.45%/KCL 20MEQ 1,000 ML IV SCH ×2 (05:36→15:21)
[2017-05-15] MEDS: ACCU-CHEK COMFORT CURVE STRIP VI SCH ×4 (06:32→22:24)
[2017-05-15] MEDS: ceFAZolin 1GM/50ML D5W 50 ML IV SCH ×3 (06:32→17:16)
[2017-05-15] MEDS: SODIUM CHLOR 0.9% PF (SALINE LOCK) 10ML VIAL IV SCH ×3 (06:32→22:24)
[2017-05-15] MEDS: InsuLIN REG 1unit/0.01ml Soln (100units/ml) SC SCH ×4 (06:46→22:24)
[2017-05-15 08:00] VITALS: BP 114/68
[2017-05-15] MEDS: DOCUSATE SOD 100 MG CAP PO SCH (09:41)
[2017-05-15] MEDS: ASPirin 81 mg TAB PO SCH ×2 (09:41→09:53)
[2017-05-15] MEDS: CARVEDILOL 3.125 MG TAB PO SCH ×2 (09:42→22:23)
[2017-05-15] MEDS: LEVOFLOXACIN 500 MG TAB PO SCH (09:43)
[2017-05-15] MEDS: ENALAPRIL MALEATE 2.5 MG TAB PO SCH ×2 (09:43→22:00)
[2017-05-15 11:46] LABS: Basophils # (auto) 0 uL; Basophils % (auto) 0.4 % (0.0-2.0); CONDITION Y; Eosinophils # (auto) 0.2 uL; Eosinophils % (auto) 2.5 % (0.0-7.0); Hematocrit 29.4 % (41.0-53.0); Hemoglobin 9.9 g/dL (13.5-17.5); Lymphocytes % (auto) 15.9 % (10.0-50.0); Mean Corpuscular Hemoglobin 29.4 pg (28.0-32.0); Mean Corpuscular Hgb Conc. 33.8 g/dL (32.0-36.0); Mean Corpuscular Volume 86.8 fL (80.0-100.0); Mean Platelet Volume 8.1 fL (7.4-10.4); Monocytes # (auto) 0.5 uL; Monocytes % (auto) 8.2 % (0.0-12.0); Neutrophils # (auto) 4.8 uL; Platelet Count (auto) 303 10^3/uL (140-450); Red Cell Distribution Width 13.8 % (11.6-16.0); White Blood Cell 6.6 10^3/uL (4.4-10.8)
[2017-05-15 11:58] LABS: INR 1.23 (0.9-1.15); Partial Thromboplastin Time 31.5 sec (22.64-33.71)
[2017-05-15 11:59] LABS: Prothrombin Time 13.4 sec (9.37-12.3)
[2017-05-15 12:26] LABS: Albumin 2.7 g/dL (3.4-5.0); BUN/Creatinine Ratio 11.9; Bilirubin, Total 1.2 mg/dL (0.2-1.0); Calcium 7.8 mg/dL (8.5-10.1); Potassium 4.1 mmol/L (3.5-5.1); Total Protein 6.3 g/dL (6.4-8.2)
[2017-05-15 12:37] VITALS: BP 107/65
[2017-05-15 15:13] VITALS: BP 114/68
[2017-05-15 17:00] VITALS: BP 107/59
[2017-05-15 22:00] VITALS: BP 111/65
[2017-05-15] MEDS: FENOFIBRATE 48MG PO SCH (22:23)
[2017-05-16] MEDS: ceFAZolin 1GM/50ML D5W 50 ML IV SCH ×3 (00:15→12:00)
[2017-05-16] MEDS: HYDROmorphone HCL 2 MG/ML VL IV PRN ×4 (00:29→21:29)
[2017-05-16] MEDS: D5W/SOD CHL 0.45%/KCL 20MEQ 1,000 ML IV SCH ×2 (01:15→11:15)
[2017-05-16 05:00] VITALS: BP 94/50
[2017-05-16] MEDS: SODIUM CHLOR 0.9% PF (SALINE LOCK) 10ML VIAL IV SCH ×3 (06:00→22:00)
[2017-05-16] MEDS: InsuLIN REG 1unit/0.01ml Soln (100units/ml) SC SCH ×4 (06:44→22:44)
[2017-05-16] MEDS: ACCU-CHEK COMFORT CURVE STRIP VI SCH ×4 (06:46→22:00)
[2017-05-16] MEDS: DOCUSATE SOD 100 MG CAP PO SCH (10:00)
[2017-05-16] MEDS: LEVOFLOXACIN 500 MG TAB PO SCH (10:00)
[2017-05-16] MEDS: ENALAPRIL MALEATE 2.5 MG TAB PO SCH ×2 (10:00→22:00)
[2017-05-16] MEDS: ASPirin 81 mg TAB PO SCH (10:00)
[2017-05-16] MEDS: CARVEDILOL 3.125 MG TAB PO SCH ×2 (10:00→22:30)
[2017-05-16 13:00] VITALS: BP 114/69
[2017-05-16 17:00] VITALS: BP 110/61
[2017-05-16] MEDS: ceFOXitin 2GM/100ML D5W 100 ML IV SCH (17:18)
[2017-05-16 22:00] VITALS: BP 107/57
[2017-05-16] MEDS: FENOFIBRATE 48MG PO SCH (22:29)
[2017-05-17] MEDS: ceFOXitin 2GM/100ML D5W 100 ML IV SCH ×4 (01:25→18:03)
[2017-05-17] MEDS: HYDROmorphone HCL 2 MG/ML VL IV PRN ×4 (01:46→22:24)
[2017-05-17 05:00] VITALS: BP 106/58
[2017-05-17] MEDS: SODIUM CHLOR 0.9% PF (SALINE LOCK) 10ML VIAL IV SCH ×2 (06:13→13:57)
[2017-05-17] MEDS: InsuLIN REG 1unit/0.01ml Soln (100units/ml) SC SCH ×2 (06:38→11:58)
[2017-05-17] MEDS: ACCU-CHEK COMFORT CURVE STRIP VI SCH ×2 (06:38→11:59)
[2017-05-17 08:00] VITALS: BP 106/64
[2017-05-17 09:00] VITALS: BP 106/64
[2017-05-17] MEDS: ENALAPRIL MALEATE 2.5 MG TAB PO SCH ×2 (10:00→22:15)
[2017-05-17] MEDS: CARVEDILOL 3.125 MG TAB PO SCH ×2 (10:00→22:14)
[2017-05-17] MEDS: DOCUSATE SOD 100 MG CAP PO SCH (10:47)
[2017-05-17] MEDS: LEVOFLOXACIN 500 MG TAB PO SCH (10:48)
[2017-05-17] MEDS: ASPirin 81 mg TAB PO SCH (10:48)
[2017-05-17 12:30] VITALS: BP 134/73
[2017-05-17 16:48] VITALS: BP 109/58
[2017-05-17] MEDS: FENOFIBRATE 48MG PO SCH (22:14)
[2017-05-17 22:40] VITALS: BP 103/56
[2017-05-18] MEDS: ceFOXitin 2GM/100ML D5W 100 ML IV SCH ×2 (01:15→06:47)
[2017-05-18] MEDS: HYDROmorphone HCL 2 MG/ML VL IV PRN (04:08)
[2017-05-18 05:52] VITALS: BP 107/59
[2017-05-18 06:29] LABS: Basophils # (auto) 0 uL; Basophils % (auto) 0.5 % (0.0-2.0); CONDITION Y; Eosinophils # (auto) 0.2 uL; Eosinophils % (auto) 3.2 % (0.0-7.0); Hematocrit 30.4 % (41.0-53.0); Hemoglobin 10.4 g/dL (13.5-17.5); Lymphocytes # (auto) 1.1 uL; Lymphocytes % (auto) 19.6 % (10.0-50.0); Mean Corpuscular Volume 85.1 fL (80.0-100.0); Mean Platelet Volume 8.1 fL (7.4-10.4); Monocytes # (auto) 0.6 uL; Monocytes % (auto) 9.8 % (0.0-12.0); Neutrophils # (auto) 3.9 uL; Neutrophils % (auto) 66.9 % (37.0-80.0); Platelet Count (auto) 338 10^3/uL (140-450); Red Cell Distribution Width 14.1 % (11.6-16.0); White Blood Cell 5.8 10^3/uL (4.4-10.8)
[2017-05-18 08:00] VITALS: BP 101/59
[2017-05-18 08:30] VITALS: BP 109/62
[2017-05-18] MEDS: ASPirin 81 mg TAB PO SCH (10:00)
[2017-05-18] MEDS: DOCUSATE SOD 100 MG CAP PO SCH (10:00)
[2017-05-18 12:03] VITALS: BP 101/59
[2017-05-18 12:32] VITALS: BP 103/55
== END 2017-05-18 12:35 | disposition home or self-care (01) | DRG 263 ==
LOC: ER 03:14 → TELE 03:15 → TELE-E-ADS 12:44 → TELE-WESTW 14:12 → WEST WING 05-08 18:23
PROVIDERS: ADMIT Internal Medicine; ATTEND Internal Medicine Pulmonary Disease
PROC: 0FT44ZZ Resection of Gallbladder, Percutaneous Endoscopic Approach (ICD-10-PCS; principal; 2017-05-05 07:59)
DX: K80.10 Calculus of gallbladder with chronic cholecystitis without obstruction (principal); I50.9 Heart failure, unspecified; K76.0 Fatty (change of) liver, not elsewhere classified; I11.0 Hypertensive heart disease with heart failure; M94.0 Chondrocostal junction syndrome [Tietze]; E87.1 Hypo-osmolality and hyponatremia; E66.01 Morbid (severe) obesity due to excess calories; I10 Essential (primary) hypertension; E11.9 Type 2 diabetes mellitus without complications; G89.29 Other chronic pain; Z82.49 Family history of ischemic heart disease and other diseases of the circulatory system; M54.5 Low back pain; E88.09 Other disorders of plasma-protein metabolism, not elsewhere classified; Z91.041 Radiographic dye allergy status; Z84.1 Family history of disorders of kidney and ureter; Z68.33 Body mass index [BMI] 33.0-33.9, adult; Z71.89 Other specified counseling
CPT/HCPCS: 36415; 71010; 74176; 74177; 74181; 75574; 76705; 78226; 80048; 80053; 80061; 80076; 80307; 81001; 82150; 82247; 82962; 83036; 83690; 83735; 83880; 84443; 84484; 85025; 85610; 85730; 86704; 86706; 86708; 86803; 86850; 86900; 86901; 86920; 87077; 87186; 87205; 87340; 93005; 93306; 96361; 96374; 96375; J0330; J0690; J0694; J1815; J2250; J2405; J2704; J3490